=== PATIENT | female | born 1995 | race Caucasian/White ===

== ENCOUNTER → 2021-03-10 | Day surgery (SDC) | payer BC ==
[~2021-03-10] VITALS: Ht 167.6 cm; Wt 76.7 kg
[2021-03-10 10:29] VITALS: BP 103/69
[2021-03-10 13:52] VITALS: BP 103/69
--- NOTE | 2021-03-14 13:21 | O ---
[address] [address] OPERATIVE REPORT Name: TABITHA ALVAREZ Room #: REG [facility]..#: [id number] Admission: 03/10/21 Attend Phys: Magdy Ridley MD Discharge: Date of : [birth year] Report #: [id number] THIS REPORT FOR: cc: NO FAMILY PHYSICIAN or PCP NO FAMILY PHYSICIAN or PCP Magdy Ridley MD ~ DATE OF SERVICE: 03/10/2021 SERVICE: Orthopedics. FACILITY: [facility]. SURGEON: Magdy Ridley MD SKOOG PATCHING MACHINE OPERATOR: Didi Ramirez NP INDICATIONS FOR SKOOG PATCHING MACHINE OPERATOR: Graft preparation, arthroscope and suture management, assistance with reconstruction. PREOPERATIVE DIAGNOSES: 1. Left knee instability. 2. Left knee anterior cruciate ligament tear. 3. Left knee posterior horn medial meniscus tear. POSTOPERATIVE DIAGNOSES: 1. Left knee instability. 2. Left knee anterior cruciate ligament tear. 3. Left knee posterior horn medial meniscus tear. 4. Left knee inner rim lateral meniscus tear. PROCEDURES: 1. Left knee arthroscopic anterior cruciate ligament reconstruction with quadriceps tendon autograft. 2. Left knee arthroscopic medial meniscus repair. 3. Left knee arthroscopic partial lateral meniscectomy. COMPLICATIONS: None. DRAINS: None. SPECIMENS: None. ANESTHESIA: General with regional. FINDINGS: 1. Quad tendon autograft fixed with Arthrex cortical fixation with the QuadLink [address] [address] OPERATIVE REPORT Name: TABITHA ALVAREZ Room #: REG [facility]#: [id number] Admission: 03/10/21 Attend Phys: Magdy Ridley MD Discharge: Date of : [birth year] Report #: [id number] technique. 2. Unstable posterior horn medial meniscus tear. This was an oblique undersurface tear that exited at the capsule and left an unstable flap on the undersurface on the tibial side. A portion of this was resected and then the meniscus was repaired with two cerclage type sutures with meniscal suture tape followed by a single FiberStitch, all-inside stitch, to stabilize the meniscus. 3. Inner rim white-white lateral meniscus tear along the posterior horn, treated with simple debridement. 4. Intact cartilage. HISTORY: The patient is a 25-year-old young lady who sustained an acute injury to her left knee that resulted in an ACL tear and a posterior horn medial meniscus tear. She is indicated for surgical treatment due to her desire to return to an active lifestyle. She has undergone previous ACL reconstruction a couple of years ago, had successful outcome with her quadriceps tendon autograft. Risks, benefits, alternatives and indications for surgery were discussed with her in detail. Risks include but are not limited to pain, bleeding, infection, injuring nerves or blood vessels, persistent pain despite surgical intervention, failure of any repairs, progression of preexisting chondral injury, stiffness, need for further surgery as well as complications related to anesthesia. Despite the risks, she wished to proceed. PROCEDURE IN DETAIL: After left lower extremity was correctly identified in the preoperative holding area as the operative extremity, the patient underwent regional nerve block by anesthesia. She was then taken to the operating room, where general anesthesia was induced without complication. She was padded appropriately. Prophylactic antibiotics were administered at appropriate time. A tourniquet was applied to the left leg. Left lower extremity was then prepped and draped in standard sterile fashion. Timeout procedure was performed. Esmarch was used, tourniquet inflated to 250 mmHg. A 1-inch incision was made based off the superior pole of the patella and then dissection was taken down through the quadriceps tendon and a 9.5 mm x 68 mm quad tendon autograft was harvested. The quad card was fashioned to each end in the QuadLink technique on the back table. Standard anterolateral viewing portal was established followed by anteromedial working portal. Diagnostic arthroscopy revealed intact articular cartilage throughout. The patella tracks properly. There were no loose bodies. There was mild synovitis. There was an obvious tear of the ACL. The medial compartment showed intact cartilage and the anterior horn of the medial meniscus that was intact, but the posterior horn was unstable to probing. This was consistent with the preoperative MRI. The decision was made to proceed with meniscal repair. This was a somewhat unique tear pattern. It did have the typical oblique undersurface tear configuration, but it was larger than typical and the [address] [address] OPERATIVE REPORT Name: TABITHA ALVAREZ Room #: REG [facility] M.R.#: [id number] Admission: 03/10/21 Attend Phys: Magdy Ridley MD Discharge: Date of : 89 Report #: [id number] undersurface component had an unstable flap component to it and so this portion needed to be debrided with the shaver. This left a portion still on the tibial side at the capsule that could benefit from repair to the main substance of the meniscus, so I used the Arthrex meniscal Scorpion to place two cerclage sutures, one in a mattress fashion and one in a simple fashion to close down the gap of the posterior horn of the meniscus with the undersurface portion. This successfully reduced the meniscus essentially to one part, but there was still some instability off the capsule dorsally and so, I used a single FiberStitch anchor and repaired the posterior horn, bridging across one of the cerclage sutures in order to have a strong interlocked construct. The meniscus was stable to probing at this point and should be stable for range of motion and weightbearing. The leg was placed in [id number] position. There was an inner rim lateral meniscus tear that extended from the posterior portion of the body and meniscus all the way to the root. There was no instability of the root. A biter and a shaver were used to debride this segment and then we turned our attention towards the ACL. The leg was placed in the 90-degree position. The Arthrex FlipCutter was used to create a 9.5 mm x 23 mm socket in the peg femur and a FlipCutter was used in a similar fashion, created a 9.5 x approximately 28-30 mm socket in the tibia. The bony debris was lavaged out of the knee. We took care to ensure that the tunnels were placed in the anatomical footprints and then the graft was passed into the knee. The cortical button was noted to fit flushly on the lateral cortex. We confirmed this with direct arthroscopy as well as palpation and that it was deep to the IT band. The graft was advanced into the femoral socket and then back passed into the tibia. The knee was placed in extension. Reverse Magnus maneuver was performed and then the tibial fixation was secured. We took the knee through a cyclic range of motion and then performed multiple Magnus and pivot shift maneuvers to confirm that stability had been restored and then re-tensioned the graft fixation to ensure that we had optimal fixation and have eliminated all creep within the construct. At this point, final photographs were taken. We confirmed that the buttons were sitting appropriately and flushly on the bone, and then the sutures were tied back up on the button and the tails were cut. Arthroscopic effusion was drained. Instruments were removed. Portal sites were closed. Sterile dressing was applied followed by compression stocking and a knee immobilizer. The patient was awakened from anesthesia and taken to recovery room in stable condition. There were no complications. All counts were recorded as correct. POSTOPERATIVE PROTOCOL: Range of motion as tolerated, weightbearing as tolerated. We will progress with early physical therapy. She will discontinue [address] [address] OPERATIVE REPORT Name: TABITHA ALVAREZ Room #: REG [facility] M.Luís.#: [id number] Admission: 03/10/21 Attend Phys: Magdy Ridley MD Discharge: Date of : [birth year] Report #: [id number] the knee immobilizer when able to straight leg raise and ambulate safely, and the plan is to discontinue the immobilizer prior to the crutches. <ELECTRONICALLY SIGNED> By: Magdy Ridley MD 03/14/21 1321 [id number] Magdy Ridley MD /nt
== END | disposition home or self-care (01) ==
LOC: OR 05:16
PROVIDERS: ATTEND Orthopaedic Surgery Sports Medicine
DX: M25.362 Other instability, left knee (principal); S83.282A Other tear of lateral meniscus, current injury, left knee, initial encounter; S83.242A Other tear of medial meniscus, current injury, left knee, initial encounter; Z20.822 Contact with and (suspected) exposure to COVID-19; X58.XXXA Exposure to other specified factors, initial encounter; Y93.89 Activity, other specified; Y92.89 Other specified places as the place of occurrence of the external cause; Y99.8 Other external cause status
CPT/HCPCS: 50010; 50101; 50386; 50405; 51320; 52001; 52282; 52313; 56524; 56525; 56527; 57103; 57180; 57979; 58352; 58484; 58485; 58486; 58504; 58589; 58680; 58682; 58730; 58771; 58875; 58876; 62110; 62900; 64039; 70005